=== PATIENT | male | born 1965 | race African-American/Black ===

== ENCOUNTER → 2017-05-13 | Outpatient (CLI) | payer OTHER ==
[~2017-05-13] VITALS: Ht 180.3 cm; Wt 61.2 kg
[~2017-05-13] MED LIST: ADVIL200 MG PO; CARAFATE1 GM PO; CITRATE OF MAG296 ML PO; COLACE100 MG PO; CYANOCOBAL1000 MCG/2 IM; FEOSOL325 MG PO; GOLYTELY SOLU4000 ML PO; HEMORRHOIDAL S PR; LACTULOSE10 GM/151 PO; OMEPRAZOLE40 M1 PO; PEN-VEE K,VEET500 MG PO; THERAGRAN1 TABLET PO
[2017-05-13 09:13] LABS: HEMATOCRIT 42.1 % (38.0-50.0); HEMOGLOBIN 13.2 G/DL (12.5-16.6); MCV 76.5 FL (86-99)
== END | disposition home or self-care (01) ==
LOC: AMB 07:30
PROVIDERS: Internal Medicine
DX: Z12.11 Encounter for screening for malignant neoplasm of colon (principal); K57.30 Diverticulosis of large intestine without perforation or abscess without bleeding; K64.8 Other hemorrhoids; K22.10 Ulcer of esophagus without bleeding; K29.60 Other gastritis without bleeding; Z85.028 Personal history of other malignant neoplasm of stomach; K31.7 Polyp of stomach and duodenum
CPT/HCPCS: 85014; 85018; 88305; 88342 TC